=== PATIENT | female | born 1960 | race Caucasian/White ===

== ENCOUNTER 2017-12-24 13:09 | Emergency (ER) | payer MEDICARE, MEDICAID, SELFPAY ==
[2017-12-24 13:10] VITALS: BMI 27.4
--- NOTE | 2017-12-24 13:11 | XR_ITS ---
XR chest 2V HISTORY: ITS.REASON: COUGH, SOA ORDERING PHYSICIAN: Shelly Pereira MD PATIENT AGE: 57 years COMPARISON: None available FINDINGS: The cardiomediastinal silhouette and pulmonary vascularity are within normal limits. The lungs are clear without infiltrates, suspicious nodules, or pleural effusions. Hyperinflation consistent with COPD. Old granulomatous disease. Well-circumscribed increased density is present in the intramedullary region of the proximal humerus consistent with bone cement. IMPRESSION: No acute finding. COPD with old granulomatous disease
[2017-12-24 13:13] VITALS: BP 151/89; PULSE 68; RESP 22; TEMP 36.8; O2SAT 96; BMI 27.4
[2017-12-24 13:40] LABS: Basophils % 0.3 % (0.1-2.0); Eosinophils # 0.2 K/mm3 (0.0-0.4); Eosinophils % 2.4 % (0.1-12.0); Hematocrit 44.6 % (37.0-47.0); Hemoglobin 14.9 g/dL (12.2-16.2); Lymphocytes # 1.9 K/mm3 (0.7-4.5); Lymphocytes % 26.1 K/mm3 (10-50); Mean Corpuscular HGB Conc 33.4 g/dL (31.8-35.4); Mean Corpuscular Hemoglobin 29.8 pg (27.0-31.2); Mean Corpuscular Volume 89.3 fl (81-99); Mean Platelet Volume 8.3 fl (7.4-10.4); Monocytes # 0.4 K/mm3 (0.1-1.0); Neutrophils # 4.9 K/mm3 (1.8-7.8); Neutrophils % 66.2 % (37.0-80.0); Platelet Count 280 K/mm3 (142-424); Red Cell Distribution Width 13.3 % (11.5-17.5); White Blood Count 7.4 K/mm3 (4.8-10.8)
[2017-12-24 14:02] LABS: Lactic Acid 0.9 mmol/L (0.4-2.0)
[2017-12-24 14:12] LABS: Creatine Kinase MB 0.7 mg/ml (0.0-3.6); Troponin I < 0.02 ng/ml (0.00-0.06)
[2017-12-24 14:13] LABS: Alanine Aminotransferase 29 U/L (12-78); Albumin Level 3.7 gm/dL (3.4-5.0); Alkaline Phosphatase 75 U/L (46-116); Aspartate Amino Transferase 18 U/L (15-37); Bilirubin,Total 0.2 mg/dL (0.2-1.0); Blood Urea Nitrogen 19 mg/dL (7-18); CKMB Relative Index 1.2 U/L (0-4.0); Calcium 9.2 mg/dL (8.5-10.1); Carbon Dioxide 24 mmol/L (21.0-32.0); Chloride 105 mmol/L (98-107); Creatine Kinase 60 U/L (26-192); Creatinine Clearance Estimated 82 mL/min (0-300); Creatinine,Serum 0.81 mg/dL (0.55-1.02); Estimated Glomerular Filt Rate 73 ml/min (>60); GFR (African American) 88 ML/MIN (>60); Globulin 3.8 gm/dl (1.3-3.2); Glucose 95 mg/dL (74-106); Sodium 140 mmol/L (136-145); Total Protein,Serum 7.5 gm/dL (6.4-8.2)
--- NOTE | 2017-12-24 15:13 | [facility].EDCP ---
ED Disposition Clinical Impression: Bronchitis, Atypical chest pain Disposition: Home, Self-Care Condition on Discharge: Good Instructions: DI for Atypical Chest Pain Additional Instructions: Try to quit smoking; continue nebs at home; see [facility] in [place] in one to two days for recheck; Rx Medrol dosepak Prescriptions: methylPREDNISolone [Medrol] 4 mg PO DAILY #1 tab.ds.pk - Critical Care Critical Care Time: No Attestation: On 12/24/17, the high probability of a clinically significant, sudden or life threatening deterioration of the following system(s) required my full and direct attention, intervention and personal management. The time I documented below is in addition to time spent performing reported procedures but includes the following listed in this critical care notation. Medical Decision Making Vital Signs: 12/24/17 13:13 Temperature 98.3 F Temperature Source Oral Pulse Rate [Right Radial] 68 Respiratory Rate 22 Blood Pressure [Right Arm] 151/89 Blood Pressure Mean [Right Arm] 109 Blood Pressure Source [Right Arm] Automatic Cuff Blood Pressure Position [Right Arm] Supine 02 Sat by Pulse Oximetry 96 Oxygen Delivery Method Room Air - Lab Data Lab Results 12/24/17 13:29: WBC 7.4, RBC 5.00, Hgb 14.9, Hct 44.6, MCV 89.3, MCH 29.8, MCHC 33.4, RDW 13.3, Plt Count 280, MPV 8.3, Neut % (Auto) 66.2, Lymph % (Auto) 26.1, [place] % (Auto) 5.0, Eos % (Auto) 2.4, Baso % (Auto) 0.3, Neut # (Auto) 4.9, Lymph # (Auto) 1.9, [place] # (Auto) 0.4, Eos # (Auto) 0.2, Baso # (Auto) 0.0 12/24/17 13:29: Sodium 140, Potassium 4.0, Chloride 105, Carbon Dioxide 24, Anion Gap 15.0, BUN 19 H, Creatinine 0.81, Estimated Creat Clear 82, Estimated GFR 73, Est GFR ( Amer) 88, Glucose 95, Calcium 9.2, Total Bilirubin 0.2, AST 18, ALT 29, Alkaline Phosphatase 75, Total Creatine Kinase 60, CK-MB (CK-2) 0.7, CK-MB (CK-2) Rel Index 1.2, Troponin I < 0.02, Total Protein 7.5, Albumin 3.7, Globulin 3.8 H, Albumin/Globulin Ratio 1.0 L 12/24/17 13:29: Lactic Acid 0.9 Result diagrams: 12/24/17 13:29 12/24/17 13:29 Orders (Tests/Meds): ED MEDICATIONS Discontinued Medications Generic Name Dose Route Start Last Admin Trade Name Mago PRN Reason Stop Dose Admin Aspirin 324 mg 12/24/17 13:13 12/24/17 13:20 Aspirin 81mg Chewable Tablet PO 12/24/17 13:14 324 mg ONCE ONE Administration ORDERS Category Date Time Status Blood Culture Stat Micro 12/24/17 13:29 Received - Radiology Data #1 Image(s): Chest Image Reviewed: Yes I reviewed the patient's radiology results Preliminary Findings: Normal/NAD, No Infiltrates Seen (COPD) - ECG Data Tracing #1 I reviewed this ECG and interpreted as documented below: ECG initial impression date: 12/24/17 ECG initial impression time: 13:05 ECG normal with no acute: arrhythmias, ischemia, conduction abnormalities, chamber hypertrophy - Vinnie Inquiry Pt receiving controlled substance: No Chest Pain HPI - General Chief Complaint: Chest Pain Stated Complaint: CHEST PAIN/SOA Time Seen by Provider: 12/24/17 13:20 Mode of Arrival: Ambulatory Source of Information: Patient Limitations: No Limitations Description of Symptoms (Recalled from ER Triage Doc. by RN): COUGH AND SOA X2 WEEKS. REPORTS AROUND 0800 CHEST PAIN BEGIN. REPORTS THAT IT FEELS LIKE SOMETHING IS SITTING ON HER CHEST. REPORTS PAIN IN LEFT CHIN. - History of Present Illness HPI narrative: Cough for two weeks, has COPD, has pain with coughing, felt a little worse this morning with cough. No fever, no palpitations, no syncope. No SOB. Onset (ago): week(s) Duration: intermittent Quality: sharp Context: other (cough; no PE RF's) - Related Data Previous Rx's Medication Instructions Recorded methylPREDNISolone [Medrol] 4 mg PO DAILY #1 tab.ds.pk 12/24/17 Allergies Allergy/AdvReac Type Severity Reaction Status Date / Time No Known Allergies Allergy Verified 12/24/17 13
--- NOTE | 2017-12-24 15:16 | ED_ITS ---
ED Disposition Clinical Impression: Bronchitis, Atypical chest pain Disposition: Home, Self-Care Condition on Discharge: Good Instructions: DI for Atypical Chest Pain Additional Instructions: Try to quit smoking; continue nebs at home; see [facility] in [place] in one to two days for recheck; Rx Medrol dosepak Prescriptions: methylPREDNISolone [Medrol] 4 mg PO DAILY #1 tab.ds.pk - Critical Care Critical Care Time: No Attestation: On 12/24/17, the high probability of a clinically significant, sudden or life threatening deterioration of the following system(s) required my full and direct attention, intervention and personal management. The time I documented below is in addition to time spent performing reported procedures but includes the following listed in this critical care notation. Medical Decision Making Vital Signs: 12/24/17 13:13 Temperature 98.3 F Temperature Source Oral Pulse Rate [Right Radial] 68 Respiratory Rate 22 Blood Pressure [Right Arm] 151/89 Blood Pressure Mean [Right Arm] 109 Blood Pressure Source [Right Arm] Automatic Cuff Blood Pressure Position [Right Arm] Supine 02 Sat by Pulse Oximetry 96 Oxygen Delivery Method Room Air - Lab Data Lab Results 12/24/17 13:29: WBC 7.4, RBC 5.00, Hgb 14.9, Hct 44.6, MCV 89.3, MCH 29.8, MCHC 33.4, RDW 13.3, Plt Count 280, MPV 8.3, Neut % (Auto) 66.2, Lymph % (Auto) 26.1 , [place] % (Auto) 5.0, Eos % (Auto) 2.4, Baso % (Auto) 0.3, Neut # (Auto) 4.9, Lymph # (Auto) 1.9, [place] # (Auto) 0.4, Eos # (Auto) 0.2, Baso # (Auto) 0.0 12/24/17 13:29: Sodium 140, Potassium 4.0, Chloride 105, Carbon Dioxide 24, Anion Gap 15.0, BUN 19 H, Creatinine 0.81, Estimated Creat Clear 82, Estimated GFR 73, Est GFR ( Amer) 88, Glucose 95, Calcium 9.2, Total Bilirubin 0.2 , AST 18, ALT 29, Alkaline Phosphatase 75, Total Creatine Kinase 60, CK-MB (CK-2 ) 0.7, CK-MB (CK-2) Rel Index 1.2, Troponin I < 0.02, Total Protein 7.5, Albumin 3.7, Globulin 3.8 H, Albumin/Globulin Ratio 1.0 L 12/24/17 13:29: Lactic Acid 0.9 Result diagrams: 12/24/17 13:29 12/24/17 13:29 Orders (Tests/Meds): ED MEDICATIONS Discontinued Medications Generic Name Dose Route Start Last Admin Trade Name Freq PRN Reason Stop Dose Admin Aspirin 324 mg 12/24/17 13:13 12/24/17 13:20 Aspirin 81mg Chewable Tablet PO 12/24/17 13:14 324 mg ONCE ONE Administration ORDERS Category Date Time Status Blood Culture Stat Micro 12/24/17 13:29 Received - Radiology Data #1 Image(s): Chest Image Reviewed: Yes I reviewed the patient's radiology results Preliminary Findings: Normal/NAD, No Infiltrates Seen (COPD) - ECG Data Tracing #1 I reviewed this ECG and interpreted as documented below: ECG initial impression date: 12/24/17 ECG initial impression time: 13:05 ECG normal with no acute: arrhythmias, ischemia, conduction abnormalities, chamber hypertrophy - Vinnie Inquiry Pt receiving controlled substance: No Chest Pain HPI - General Chief Complaint: Chest Pain Stated Complaint: CHEST PAIN/SOA Time Seen by Provider: 12/24/17 13:20 Mode of Arrival: Ambulatory Source of Information: Patient Limitations: No Limitations Description of Symptoms (Recalled from ER Triage Doc. by RN): COUGH AND SOA X2 WEEKS. REPORTS AROUND 0800 CHEST PAIN BEGIN. REPORTS THAT IT FEELS LI
[2017-12-24 15:45] VITALS: BP 151/89; PULSE 68; RESP 22; TEMP 36.8; O2SAT 96
== END 2017-12-24 15:45 | disposition home or self-care (01) ==
PROVIDERS: Emergency Provider Emergency Medicine
DX: J20.9 Acute bronchitis, unspecified (principal); R07.89 Other chest pain; F17.210 Nicotine dependence, cigarettes, uncomplicated; J44.9 Chronic obstructive pulmonary disease, unspecified
CPT/HCPCS: 36415; 71046; 80053; 82550; 82553; 83605; 84484; 85025; 87040; 93005; 99284

== ENCOUNTER → 2018-12-02 13:35 | Outpatient (CLI) | payer MEDICARE, MEDICAID, SELFPAY ==
[2018-12-02 14:02] LABS: Basophils % 0.6 % (0.1-2.0); Eosinophils # 0.1 K/mm3 (0.0-0.4); Eosinophils % 1.1 % (0.1-12.0); Hematocrit 44.7 % (37.0-47.0); Hemoglobin 14.6 g/dL (12.2-16.2); Lymphocytes # 1.2 K/mm3 (0.7-4.5); Lymphocytes % 18.1 % (10-50); Mean Corpuscular HGB Conc 32.7 g/dL (31.8-35.4); Mean Corpuscular Hemoglobin 28.7 pg (27.0-31.2); Mean Corpuscular Volume 87.8 fl (81-99); Mean Platelet Volume 10.1 fl (7.4-10.4); Monocytes # 0.3 K/mm3 (0.1-1.0); Monocytes % 3.8 % (1.7-9.3); Neutrophils # 5.1 K/mm3 (1.8-7.8); Neutrophils % 76.4 % (37.0-80.0); Platelet Count 370 K/mm3 (142-424); Red Blood Count 5.09 M/mm3 (4.20-5.40); Red Cell Distribution Width 13.4 % (11.5-17.5); White Blood Count 6.7 K/mm3 (4.8-10.8)
[2018-12-02 14:37] LABS: Erythrocyte Sedimentation Rate 30 mm/hr (0-30)
[2018-12-02 14:48] LABS: Alanine Aminotransferase 28 U/L (12-78); Albumin Level 3.5 gm/dL (3.4-5.0); Albumin/Globulin Ratio 1.1 (1.1-1.8); Alkaline Phosphatase 98 U/L (46-116); Anion Gap 14.3 mEq/L (5-15); Aspartate Amino Transferase 15 U/L (15-37); Bilirubin,Total 0.4 mg/dL (0.2-1.0); Blood Urea Nitrogen 15 mg/dL (7-18); C-Reactive Protein 0.7 mg/L (0.0-0.9); Calcium 9.1 mg/dL (8.5-10.1); Carbon Dioxide 27 mmol/L (21.0-32.0); Chloride 107 mmol/L (98-107); Chol/HDL Ratio 4.7 (1-3.5); Cholesterol 200 mg/dL (140-200); Creatinine,Serum 0.72 mg/dL (0.55-1.02); Estimated Glomerular Filt Rate 83 ml/min (>60); GFR (African American) 101 ML/MIN (>60); Globulin 3.2 gm/dl (1.3-3.2); Glucose 90 mg/dL (74-106); HDL Cholesterol 43 mg/dL (29-89); LDL Cholesterol 122 mg/dL (0-130); Potassium 4.3 mmoL/L (3.5-5.1); Sodium 144 mmol/L (136-145); T4 (Thyroxine) 8.6 ug/dl (4.7-13.3); Thyroid Stimulating Hormone 2.14 uIU/ml (0.358-3.740); Total Protein,Serum 6.7 gm/dL (6.4-8.2); Triglycerides 176 mg/dL (30-200); VLDL Cholesterol 35 mg/dL (0-40)
[2018-12-03 12:28] LABS: Vitamin D 25 Hydroxy 13.3 ng/mL (30.0-100.0)
== END ==
PROVIDERS: Visit Provider Nurse Practitioner Family
DX: M25.50 Pain in unspecified joint (principal); R07.89 Other chest pain; R53.83 Other fatigue; J44.9 Chronic obstructive pulmonary disease, unspecified
CPT/HCPCS: 80053; 80061; 82652; 84436; 84443; 85025; 85651; 86140

== ENCOUNTER → 2018-12-03 10:18 | Outpatient (CLI) | payer MEDICARE, MEDICAID, SELFPAY ==
--- NOTE | 2018-12-03 10:29 | XR_ITS ---
XR chest 2V HISTORY: ITS.REASON: cough, smoker, COPD ORDERING PHYSICIAN: Delma Flower PATIENT AGE: 58 years COMPARISON: 12/24/2017 FINDINGS: The cardiomediastinal silhouette and pulmonary vascularity are within normal limits. COPD with hyperinflation. Old granulomatous disease with calcified nodes in the right hilum. Patchy density noted in the right lung base and may be related to combination of vascular crowding along with a small area of infiltrate or atelectasis. There is blunting of the posterior costophrenic sulcus suggesting small pleural effusion. No acute bony findings. Prior surgery with bone cement in the proximal left humerus IMPRESSION: COPD with patchy infiltrate in the right lung base with small effusion
== END ==
PROVIDERS: PCP Nurse Practitioner Family; Visit Provider Nurse Practitioner Family
DX: J44.9 Chronic obstructive pulmonary disease, unspecified (principal); R05 Cough; Z76.89 Persons encountering health services in other specified circumstances
CPT/HCPCS: 71046